=== PATIENT | female | born 1995 | race Two or more races ===

== ENCOUNTER 2018-02-12 18:14 | Emergency (ER) | payer OTHER ==
[2018-02-12] MEDS ORDERED: MAG HYDROX/AL HYDROX/SIMETH SUSP 30 ML UDCUP PO ONE (19:07)
[2018-02-12] MEDS ORDERED: LIDOCAINE 2% VISCOUS SOLN 20 ML UDCUP PO ONE (19:07)
--- NOTE | 2018-02-12 19:08 | ER Document Report ---
ED Medical Screen (RME) - General Chief Complaint: Abdominal Pain Stated Complaint: ABDOMINAL PAIN Time Seen by Provider: 02/12/18 19:01 Notes: 22-year-old female patient with onset yesterday right upper quadrant and epigastric abdominal pain. LMP 12/31/2017. Did a home test today and it was positive. I have greeted and performed a rapid initial assessment of this patient. A comprehensive ED assessment and evaluation of the patient, analysis of test results and completion of the medical decision making process will be conducted by additional ED providers. TRAVEL OUTSIDE OF THE [place] IN LAST 30 DAYS: No - Related Data Allergies/Adverse Reactions: No Known Allergies Allergy (Unverified 02/12/18 18:17) Past Medical History - Social History Chew tobacco use (# tins/day): No Frequency of alcohol use: None Drug Abuse: None Renal/ Medical History: Denies: Hx Peritoneal Dialysis Physical Exam - Vital signs Vitals: Temp Pulse Resp BP Pulse Ox 99.3 F 87 16 116/69 100 02/12/18 18:31 02/12/18 18:31 02/12/18 18:31 02/12/18 18:31 02/12/18 18:31 Course - Vital Signs Vital signs: Temp Pulse Resp BP Pulse Ox 99.3 F 87 16 116/69 100 02/12/18 18:31 02/12/18 18:31 02/12/18 18:31 02/12/18 18:31 02/12/18 18:31
[2018-02-12 19:45] LABS: ABSOLUTE BASOPHILS # (AUTO) 0.1 10^3/uL (0.0-0.2); ABSOLUTE EOSINOPHILS # (AUTO) 0.1 10^3/uL (0.0-0.6); ABSOLUTE LYMPHOCYTES (AUTO) 3.4 10^3/uL (0.5-4.7); ABSOLUTE MONOCYTES (AUTO) 0.5 10^3/uL (0.1-1.4); ABSOLUTE NEUT (AUTO) 6.3 10^3/uL (1.7-8.2); BASOPHILS % (AUTO) 0.9 % (0-2); EOSINOPHILS % (AUTO) 0.6 % (0-6); HEMATOCRIT 38.6 % (36.0-47.0); HEMOGLOBIN 13.1 g/dL (12.0-15.5); LYMPHOCYTES % (AUTO) 32.7 % (13-45); MEAN CORPUSCULAR HEMOGLOBIN 27.9 pg (27.0-33.4); MEAN CORPUSCULAR VOLUME 82 fl (80-97); RED CELL DISTRIBUTION WIDTH 14.7 % (11.5-14.0); SEGMENTED NEUTROPHILS % (AUTO) 60.8 % (42-78); TOTAL CELLS COUNTED % (AUTO) 100 %; WHITE BLOOD COUNT 10.4 10^3/uL (4.0-10.5)
[2018-02-12 20:06] LABS: PLATELET COUNT 205 10^3/uL (150-450)
[2018-02-12 20:07] LABS: ALANINE AMINOTRANSFERASE 27 U/L (9-52); ALBUMIN 4.4 g/dL (3.5-5.0); ALKALINE PHOSPHATASE 68 U/L (38-126); ANION GAP 13 (5-19); ASPARTATE AMINO TRANSFERASE 18 U/L (14-36); BILIRUBIN,DIRECT 0.2 mg/dL (0.0-0.4); BILIRUBIN,TOTAL 0.2 mg/dL (0.2-1.3); BLOOD UREA NITROGEN 18 mg/dL (7-20); CALCIUM 9.8 mg/dL (8.4-10.2); CARBON DIOXIDE 23 mmol/L (22-30); CHLORIDE 104 mmol/L (98-107); GLUCOSE 95 mg/dL (75-110); LIPASE 108.2 U/L (23-300); POTASSIUM 4.6 mmol/L (3.6-5.0); SODIUM 140.2 mmol/L (137-145); TOTAL PROTEIN 7.7 g/dL (6.3-8.2)
--- NOTE | 2018-02-12 20:15 | RADIOLOGY REPORT (SQ) ---
EXAM DESCRIPTION: U/S ABDOMEN LIMITED W/O DOP COMPLETED DATE/TIME: 02/12/2018 7:58 pm REASON FOR STUDY: RUQ and epigastric pain COMPARISON: None. TECHNIQUE: Dynamic and static grayscale images acquired of the abdomen and recorded on PACS. Additio nal selected color Doppler and spectral images recorded. LIMITATIONS: None. FINDINGS: PANCREAS: No masses. Visualized pancreatic duct normal caliber. LIVER: 17.2 cm. Normal echotexture. No masses. LIVER VASCULATURE: Normal directional flow of the main portal vein and hepatic veins. GALLBLADDER: Gallbladder is contracted. No stones. ULTRASOUND-DETECTED [place]'S SIGN: Negative. INTRAHEPATIC DUCTS AND COMMON DUCT: CBD and intrahepatic ducts normal caliber. No filling defects. INFERIOR VENA CAVA: Patent AORTA: No aneurysm. RIGHT KIDNEY: Normal size, 10 cm. Normal echogenicity. No solid or suspicious masses. No hydronephro sis. No calcifications. PERITONEAL AND RIGHT PLEURAL SPACE: No ascites or effusions. OTHER: No other significant findings. IMPRESSION: NORMAL RIGHT UPPER QUADRANT ULTRASOUND. TECHNICAL DOCUMENTATION: JOB ID: [id number]- All Rights Reserved Reading location - IP/workstation name: [email or web address]
--- NOTE | 2018-02-12 21:22 | ER Document Report ---
ED General - General Chief Complaint: Abdominal Pain Stated Complaint: ABDOMINAL PAIN Time Seen by Provider: 02/12/18 19:01 Notes: Patient is a 22-year-old female who presents with epigastric and right upper quadrant abdominal pain that has been present for the past several days to 1 week but became acutely worse today. She describes as a burning, stabbing pain to the upper abdomen. Worsened by eating. She reports that it has been improved by the GI cocktail that was administered prior to my assessment. Patient states that she recently discovered she was based on a home positive test. She denies any lower abdominal pain, dysuria, vaginal bleeding or vaginal discharge. She has not yet established care for this . She admits to regular consumption of spicy and acidic food. She has not seen her general doctor regarding today's concerns. TRAVEL OUTSIDE OF THE [place] IN LAST 30 DAYS: No - Related Data Allergies/Adverse Reactions: No Known Allergies Allergy (Unverified 02/12/18 18:17) Past Medical History - General Information source: Patient - Social History Smoking Status: Never Smoker Chew tobacco use (# tins/day): No Frequency of alcohol use: None Drug Abuse: None Lives with: Spouse/Significant other Family History: Reviewed & Not Pertinent Patient has suicidal ideation: No Patient has homicidal ideation: No Renal/ Medical History: Denies: Hx Peritoneal Dialysis Review of Systems - Review of Systems Notes: Constitutional: Negative for fever. HENT: Negative for sore throat. Eyes: Negative for visual changes. Cardiovascular: Negative for chest pain. Respiratory: Negative for shortness of breath. Gastrointestinal: Positive for abdominal pain and nausea Genitourinary: Negative for dysuria. Musculoskeletal: Negative for back pain. Skin: Negative for rash. Neurological: Negative for headaches, weakness or numbness. 10 point ROS negative except as marked above and in HPI. Physical Exam - Vital signs Vitals: Temp Pulse Resp BP Pulse Ox 99.3 F 87 16 116/69 100 02/12/18 18:31 02/12/18 18:31 02/12/18 18:31 02/12/18 18:31 02/12/18 18:31 Interpretation: Normal Notes: PHYSICAL EXAMINATION: GENERAL: Well-appearing, well-nourished and in no acute distress. HEAD: Atraumatic, normocephalic. EYES: Pupils equal round and reactive to light, extraocular movements intact, sclera anicteric, conjunctiva are normal. ENT: nares patent, oropharynx clear without exudates. Moist mucous membranes. NECK: Normal range of motion, supple without lymphadenopathy LUNGS: Breath sounds clear to auscultation bilaterally and equal. No wheezes rales or rhonchi. HEART: Regular rate and rhythm without murmurs ABDOMEN: Soft, nontender, normoactive bowel sounds. No guarding, no rebound. No masses appreciated. EXTREMITIES: Normal range of motion, no pitting or edema. No cyanosis. NEUROLOGICAL: No focal neurological deficits. Moves all extremities spontaneously and on command. PSYCH: Normal mood, normal affect. SKIN: Warm, Dry, normal turgor, no rashes or lesions noted. Course - Re-evaluation Re-evalutation: 02/12/18 21:21 Patient presents with epigastric abdominal pain with associated reflux symptoms most consistent with likely gastritis. Patient has no focal abdominal tenderness on examination. Right upper quadrant ultrasound does not demonstrate any evidence of acute cholecystitis or cholelithiasis. Lipase is normal. No LFT changes. Based on history and exam, I do not suspect ACS, pulmonary embolus, SBO, mesenteric ischemia, acute pancreatitis, biliary pathology, related pathology, or an abdominal aortic dissection. Patient has had improvement of symptoms here with a GI cocktail. At this time will discharge with return precautions and follow-up recommendations. Verbal discharge instructions given a the bedside and opportunity for questions given. Medication warnings reviewed. Patient is in agreement with this plan and has verbalized understanding of return precautions and the need for primary care follow-up in the next 24-72 hours. - Vital Signs Vital signs: Temp Pulse Resp BP Pulse Ox 98.0 F 78 18 107/54 L 99 02/12/18 22:18 02/12/18 22:18 02/12/18 22:18 02/12/18 22:18 02/12/18 22:18 - Laboratory Result Diagrams: 02/12/18 19:26 02/12/18 19:26 Laboratory results interpreted by me: 02/12/18 02/12/18 19:26 19:26 RDW 14.7 H Beta HCG, Quant 421.79 H - Diagnostic Test Radiology reviewed: Reports reviewed Discharge - Discharge Clinical Impression: Upper abdominal pain, First trimester Gastritis Qualifiers: Gastritis type: unspecified gastritis Chronicity: acute Gastritis bleeding: without bleeding Qualified Code(s): K29.00 - Acute gastritis without bleeding Condition: Good Disposition: HOME, SELF-CARE Additional Instructions: Your symptoms appear to be most consistent with stomach or upper intestinal irritation. Please begin taking famotidine 40 mg in the morning and 40 mg at night. This medicine can be purchased directly [id number]. You may also take medicine such as Tums to assist with your pain. Please return to emergency department immediately if you have worsening of your pain, shortness of breath, vomiting, become unable to exert yourself due to pain or difficulty breathing, you pass out, or have any pain that radiates into your arms, jaw, or back. Please also return if you have any additional symptoms that are concerning to you. As we have discussed, the most important thing is lifestyle changes. You need to avoid smoking, sodas, tea, coffee, alcohol, spicy foods, and acidic foods such as citrus fruits, tomato based products, berries, and most fruit juices. Referrals: JUSTINA WALLS, DO [Primary Care Provider] - Follow up as needed
[2018-02-12 22:21] VITALS: BP 107/54
== END 2018-02-12 22:21 | disposition home or self-care (01) ==
LOC: ER 18:14
DX: O99.611 Diseases of the digestive system complicating pregnancy, first trimester (principal); K29.00 Acute gastritis without bleeding; O26.891 Other specified pregnancy related conditions, first trimester; R10.13 Epigastric pain; R10.11 Right upper quadrant pain; R11.0 Nausea; Z3A.00 Weeks of gestation of pregnancy not specified
CPT/HCPCS: 99284; 36415; 84702; 83690; 85025; 80053; 76705; J3490

== ENCOUNTER 2018-02-17 15:30 | Emergency (ER) | payer OTHER ==
[2018-02-17 16:48] LABS: APPEARANCE,URINE CLEAR; BILIRUBIN,URINE NEGATIVE (NEGATIVE); COLOR,URINE YELLOW; GLUCOSE, URINE NEGATIVE (NEGATIVE); KETONES,URINE NEGATIVE (NEGATIVE); LEUKOCYTE ESTERASE,URINE NEGATIVE (NEGATIVE); NITRITE,URINE NEGATIVE (NEGATIVE); PROTEIN,URINE NEGATIVE (NEGATIVE); URINE SPECIFIC GRAVITY 1.006; UROBILINOGEN,URINE NEGATIVE mg/dL (<2.0)
--- NOTE | 2018-02-17 16:59 | ER Document Report ---
ED GI/ - General Chief Complaint: OB Problem (<20wks) Stated Complaint: BACK/STOMACH PAIN Time Seen by Provider: 02/17/18 16:05 Mode of Arrival: Ambulatory Information source: Patient Notes: 22-year-old female who presents to the emergency department today with complaints of vaginal bleeding. Patient is her last menstrual period was December 31. Patient has tested positive for chlamydia in the past. Patient also complains of mild back pain. Patient states she is vaginal discharge that is somewhat normal for her. I have greeted and performed a rapid initial assessment of this patient. A comprehensive ED assessment and evaluation of the patient, analysis of test results, and completion of the medical decision making process will be conducted by additional ED providers. Review of systems: Constitutional: No symptoms reported EENT: No symptoms reported Cardiovascular: No symptoms reported Respiratory: No symptoms reported Gastrointestinal: No symptoms reported Genitourinary: No symptoms reported Musculoskeletal: No symptoms reported Skin: No symptoms reported Hematologic/Lymphatic: No symptoms reported Neurological/Psychological: No symptoms reported Yes All other systems reviewed and negative Physical Exam: General: Alert, appears well. HEENT: Normocephalic. Atraumatic. PERRLA. Extraocular movements intact. Oropharynx clear. Neck: Supple. Respiratory: No respiratory distress. Abdominal: Normal Inspection. No distension. Extremities: Moves all four extremities. Neurological: Normal cognition. AAOx4. Normal speech. Psychological: Normal affect. Normal Mood. Skin: Warm. Dry. Normal color. TRAVEL OUTSIDE OF THE [place] IN LAST 30 DAYS: No - Related Data Allergies/Adverse Reactions: No Known Allergies Allergy (Verified 02/17/18 16:01) Past Medical History - General Information source: Patient Last Menstrual Period: 12/31/2017 - Social History Smoking Status: Never Smoker Cigarette use (# per day): No Chew tobacco use (# tins/day): No Frequency of alcohol use: None Drug Abuse: None Family History: Reviewed & Not Pertinent Patient has suicidal ideation: No Patient has homicidal ideation: No - Medical History Medical History: Negative Renal/ Medical History: Denies: Hx Peritoneal Dialysis Surgical Hx: Negative Review of Systems - Review of Systems Constitutional: No symptoms reported EENT: No symptoms reported Cardiovascular: No symptoms reported Respiratory: No symptoms reported Gastrointestinal: No symptoms reported Genitourinary: No symptoms reported Female Genitourinary: See HPI, Vaginal discharge Musculoskeletal: See HPI, Back pain Skin: No symptoms reported Hematologic/Lymphatic: No symptoms reported Neurological/Psychological: No symptoms reported -: Yes All other systems reviewed and negative Physical Exam - Vital signs Vitals: Temp Pulse Resp BP Pulse Ox 98.0 F 83 20 121/72 97 02/17/18 15:51 02/17/18 15:51 02/17/18 15:51 02/17/18 15:51 02/17/18 15:51 - Notes Notes: Physical Exam: General: Alert, appears well. HEENT: Normocephalic. Atraumatic. PERRL. Extraocular movements intact. Oropharynx clear. Neck: Supple. Non-tender. Respiratory: No respiratory distress. Clear and equal breath sounds bilaterally. Cardiovascular: Regular rate and rhythm. Abdominal: Normal Inspection. Non-tender. No distension. Normal Bowel Sounds. Back: Non-tender. No deformity or step off. Extremities: Moves all four extremities. Upper extremities: Normal inspection. Normal ROM. Lower extremities: Normal inspection. No edema. Normal ROM. Neurological: Normal cognition. AAOx4. Normal speech. Psychological: Normal affect. Normal Mood. Skin: Warm. Dry. Normal color. Course - Vital Signs Vital signs: Temp Pulse Resp BP Pulse Ox 98.0 F 83 20 121/72 97 02/17/18 15:51 02/17/18 15:51 02/17/18 15:51 02/17/18 15:51 02/17/18 15:51 - Laboratory Laboratory results interpreted by dc: 02/17/18 02/17/18 16:15 16:20 Beta HCG, Quant 86.08 H Urine Blood LARGE H
[2018-02-17] MEDS ORDERED: LIDOCAINE 2% VISCOUS SOLN 20 ML UDCUP PO ONE (17:07)
[2018-02-17] MEDS ORDERED: MAG HYDROX/AL HYDROX/SIMETH SUSP 30 ML UDCUP PO ONE (17:07)
--- NOTE | 2018-02-17 17:10 | RADIOLOGY REPORT (SQ) ---
EXAM DESCRIPTION: U/S OB TRANSVAGINAL W/O DOP COMPLETED DATE/TIME: 02/17/2018 4:59 pm REASON FOR STUDY: vag bleed, r/o ectopic COMPARISON: None. TECHNIQUE: Transvaginal grayscale images acquired of the pelvis. Additional selected spectral and co ruben Doppler images recorded. All images stored on PACs. BHCG: Pending. LIMITATIONS: None. FINDINGS: UTERUS: The uterus measures 8.4 x 4.8 x 6.0 cm. The endometrium measurements 1.3 cm in do uble wall thickness. No visualized intrauterine . The cervix measures 3.0 cm in length. RIGHT ADNEXA: The right ovary measures 3.1 x 1.9 x 1.5 cm. Flow by Doppler was shown to the right ov elizabeth. No adnexal masses the were visualized. LEFT ADNEXA: The left ovary measures 3.1 x 2.3 x 1.5 cm. Flow by Doppler was shown to the left ovary . No adnexal masses were visualized. FREE FLUID: Small amount of free fluid at the cul-de-sac. IMPRESSION: NO VISUALIZED INTRA- OR EXTRAUTERINE . ECTOPIC CANNOT BE EXCLUDED. FOLLOW-UP ULTRASOUND AND SERIAL BHCG LEVELS STRONGLY RECOMMENDED TO ACCURATELY ASSESS STATU S. TECHNICAL DOCUMENTATION: JOB ID: [id number] 2010 [employer]- All Rights Reserved Reading location - IP/workstation name: [email or web address]
--- NOTE | 2018-02-17 17:13 | ER Document Report ---
ED General - General Mode of Arrival: Ambulatory Information source: Patient TRAVEL OUTSIDE OF THE [place] IN LAST 30 DAYS: No - General Chief Complaint: OB Problem (<20wks) Stated Complaint: BACK/STOMACH PAIN Time Seen by Provider: 02/17/18 16:05 Notes: Patient is a 22 year old female presenting to the emergency department complaining of epigastric abdominal pain and vaginal bleeding while . Patient states she began to abdominal cramps last night which started in the right lower quadrant and migrated to the epigastric area. Today she states she felt a "gush" and went to the bathroom and noticed some blood around 14:30. On February 12, patient presented to the emergency department complaining of epigastric and right upper quadrant pain. She was discharged with a diagnosis of <20 weeks, GERD, and gastritis. Patient was prescribed Famotidine. Patients LMP was December 31, 2017. (JOSE STOVALL) - Related Data Allergies/Adverse Reactions: No Known Allergies Allergy (Verified 02/17/18 16:01) Past Medical History - General Information source: Patient Last Menstrual Period: 12/31/2017 - Social History Smoking Status: Never Smoker Chew tobacco use (# tins/day): No Frequency of alcohol use: None Drug Abuse: None Family History: Reviewed & Not Pertinent Patient has suicidal ideation: No Patient has homicidal ideation: No Review of Systems - Review of Systems Constitutional: No symptoms reported EENT: No symptoms reported Cardiovascular: No symptoms reported Respiratory: No symptoms reported Gastrointestinal: See HPI, Abdominal pain Genitourinary: No symptoms reported Female Genitourinary: See HPI, , Vaginal bleeding Musculoskeletal: No symptoms reported Skin: No symptoms reported Hematologic/Lymphatic: No symptoms reported Neurological/Psychological: No symptoms reported -: Yes All other systems reviewed and negative Physical Exam - General General appearance: Appears well, Alert In distress: None - HEENT Head: Normocephalic, Atraumatic Eyes: Normal Conjunctiva: Normal Extraocular movements intact: Yes Pupils: PERRL Neck: Normal - Respiratory Respiratory status: No respiratory distress Chest status: Nontender Breath sounds: Normal Chest palpation: Normal - Cardiovascular Rhythm: Regular Heart sounds: Normal auscultation Murmur: No Friction rub: No Gallop: None auscultated - Abdominal Inspection: Normal Distension: No distension Bowel sounds: Normal Tenderness: Tender - Epigastric tenderness to palpation Organomegaly: No organomegaly - Back Back: Normal - Extremities General upper extremity: Normal ROM General lower extremity: Normal ROM - Neurological Neuro grossly intact: Yes Cognition: Normal Orientation: AAOx4 [place] Coma Scale Eye Opening: Spontaneous [place] Coma Scale Verbal: Oriented [place] Coma Scale Motor: Obeys Commands [place] Coma Scale Total: 15 Speech: Normal - Psychological Associated symptoms: Normal affect, Normal mood - Skin Skin Temperature: Warm Skin Moisture: Dry Skin Color: Normal - Vital signs Vitals: Temp Pulse Resp BP Pulse Ox 98.0 F 83 20 121/72 97 02/17/18 15:51 02/17/18 15:51 02/17/18 15:51 02/17/18 15:51 02/17/18 15:51 - Vital Signs Vital signs: Temp Pulse Resp BP Pulse Ox 98.7 F 77 20 126/77 H 100 02/17/18 18:57 02/17/18 18:57 02/17/18 15:51 02/17/18 18:57 02/17/18 18:57 - Laboratory Laboratory results interpreted by me: 02/17/18 02/17/18 16:15 16:20 Beta HCG, Quant 86.08 H Urine Blood LARGE H Discharge - Discharge Clinical Impression: Miscarriage Gastroesophageal reflux disease Qualifiers: Esophagitis presence: esophagitis presence not specified Qualified Code(s): K21.9 - Gastro-esophageal reflux disease without esophagitis Condition: Stable Disposition: HOME, SELF-CARE Additional Instructions: Miscarriage You have had a miscarriage (medically called a "spontaneous "). The miscarriage occurred because the fetus did not develop normally. There is nothing you did to cause it, and nothing you could have done to prevent it. About one in four ends in miscarriage. You should rest in bed for two or three days. As there is some risk of infection of the uterus, you should not have intercourse for one week (or until okayed by your physician). You might not have a period for six to eight weeks. You should not become again for at least three months -- the uterus requires time to get back to normal. Call the doctor or return for re-examination if there is heavy or persistent vaginal bleeding, fever, foul discharge, continued cramping pains, or abdominal pain. Reflux Disease (GERD): Gastro-Esophageal Reflux Disease (GERD) is caused by stomach acid refluxing back up into the esophagus. The valve at the end of the esophagus may be weak. This is common in persons with a hiatal hernia. GERD symptoms can include indigestion, chest pain, heartburn, or food "sticking." Certain foods, alcohol, and aspirin can make GERD worse. Treatment depends on the severity. Usually, antacids or acid-suppressing medicines are used. When the esophagus is acutely inflamed, the physician will often prescribe membrane-protective drugs such as Carafate. Some patients benefit from medication such as Reglan that tightens the valve at the top of the stomach. Avoid those foods that bring on your symptoms. For many people, these foods are coffee, chocolate, onions, garlic, and carbonated drinks. Don't use alcohol, aspirin, caffeine, or tobacco. Don't eat late at night -- within 4 hours of bedtime. Don't over-eat. If necessary, elevate the head of your bed about 4 inches so that stomach acid will not roll up into your esophagus. Call the doctor if you develop severe chest pain, inability to swallow fluids, fever, or worsening symptoms. Call [facility] Monday to schedule an appointment for this week for recheck. Take Prilosec OTC or other acid suppressing medication for the next 1-2 weeks. Take antacids between meals and at bedtime and as needed for heartburn type symptoms. Eat a bland diet. RETURN TO THE EMERGENCY ROOM IF ANY NEW OR WORSENING SYMPTOMS. Alejandraibe Attestation: 02/17/18 18:57 I personally performed the services described in the documentation, reviewed and edited the documentation which was dictated to the scribe in my presence, and it accurately records my words and actions. (DOMONIQUE JACKSON) Alejandraibe Documentation - Scribe Written by Swati:: Swati Hooper, 02/17/2018 17:15 acting as scribe for :: Caio
[2018-02-17 18:57] VITALS: BP 126/77
== END 2018-02-17 19:03 | disposition home or self-care (01) ==
LOC: ER 15:30
DX: O03.9 Complete or unspecified spontaneous abortion without complication (principal); K21.9 Gastro-esophageal reflux disease without esophagitis
CPT/HCPCS: 99284; 86900; 86901; 36415; 84702; 81001; 76817; J3490

== ENCOUNTER 2018-07-12 20:34 | Emergency (ER) | payer OTHER ==
[2018-07-12] MEDS ORDERED: HYOSCYAMINE SULFATE 0.125 MG TABLET PO ONE (20:53)
[2018-07-12] MEDS ORDERED: ONDANSETRON 4 MG TAB.RAPDIS PO ONE (20:53)
[2018-07-12 21:33] LABS: ABSOLUTE LYMPHOCYTES (AUTO) 2.3 10^3/uL (0.5-4.7); ABSOLUTE MONOCYTES (AUTO) 0.4 10^3/uL (0.1-1.4); ABSOLUTE NEUT (AUTO) 3.8 10^3/uL (1.7-8.2); BASOPHILS % (AUTO) 0.5 % (0-2); EOSINOPHILS % (AUTO) 0.4 % (0-6); HEMATOCRIT 37.1 % (36.0-47.0); HEMOGLOBIN 12.6 g/dL (12.0-15.5); LYMPHOCYTES % (AUTO) 35.4 % (13-45); MEAN CORPUSCULAR HEMOGLOBIN 28.6 pg (27.0-33.4); MEAN CORPUSCULAR HGB CONC 34.1 g/dL (32.0-36.0); MEAN CORPUSCULAR VOLUME 84 fl (80-97); MONOCYTES % (AUTO) 5.8 % (3-13); PLATELET COUNT 239 10^3/uL (150-450); RED BLOOD COUNT 4.42 10^6/uL (3.72-5.28); RED CELL DISTRIBUTION WIDTH 13.7 % (11.5-14.0); SEGMENTED NEUTROPHILS % (AUTO) 57.9 % (42-78); TOTAL CELLS COUNTED % (AUTO) 100 %; WHITE BLOOD COUNT 6.6 10^3/uL (4.0-10.5)
[2018-07-12] MEDS ORDERED: HYOSCYAMINE SULFATE 0.125 MG TABLET ONE (21:36)
[2018-07-12 21:47] LABS: APPEARANCE,URINE CLEAR; BILIRUBIN,URINE NEGATIVE (NEGATIVE); COLOR,URINE STRAW; GLUCOSE, URINE NEGATIVE (NEGATIVE); KETONES,URINE NEGATIVE (NEGATIVE); LEUKOCYTE ESTERASE,URINE NEGATIVE (NEGATIVE); NITRITE,URINE NEGATIVE (NEGATIVE); PROTEIN,URINE NEGATIVE (NEGATIVE); URINE SPECIFIC GRAVITY 1.011; UROBILINOGEN,URINE NEGATIVE mg/dL (<2.0)
[2018-07-12 22:02] LABS: ALANINE AMINOTRANSFERASE 15 U/L (9-52); ALBUMIN 4.8 g/dL (3.5-5.0); ALKALINE PHOSPHATASE 64 U/L (38-126); ANION GAP 16 (5-19); ASPARTATE AMINO TRANSFERASE 17 U/L (14-36); BILIRUBIN,DIRECT 0.1 mg/dL (0.0-0.4); BILIRUBIN,TOTAL 0.3 mg/dL (0.2-1.3); BLOOD UREA NITROGEN 17 mg/dL (7-20); CALCIUM 9.9 mg/dL (8.4-10.2); CARBON DIOXIDE 25 mmol/L (22-30); CHLORIDE 100 mmol/L (98-107); GLUCOSE 72 mg/dL (75-110); POTASSIUM 4.1 mmol/L (3.6-5.0); SODIUM 140.7 mmol/L (137-145); TOTAL PROTEIN 8.1 g/dL (6.3-8.2)
--- NOTE | 2018-07-12 22:10 | RADIOLOGY REPORT (SQ) ---
EXAM DESCRIPTION: US TRANSVAGINAL COMPLETED DATE/TME: 07/12/2018 20:54 CLINICAL HISTORY: 23 years, Female, lower ab pain, preg COMPARISON: None. TECHNIQUE: LIMITATIONS: None. FINDINGS: There is an intrauterine gestational sac, with a mean diameter of 2.4 mm, compatible with 4-5 weeks gestational age. There is no evidence of an embryo or yolk sac at this time. No evidence of subchorionic hemorrhage. The endometrial stripe is thickened, measuring 16 mm. The ovaries are unremarkable. No free fluid. IMPRESSION: 4-5 week intrauterine gestational sac. 2010 [employer]- All Rights Reserved
--- NOTE | 2018-07-12 22:28 | ER Document Report ---
ED General - General Chief Complaint: Abdominal Pain Stated Complaint: ABDOMINAL PAIN/CRAMPING Time Seen by Provider: 07/12/18 20:51 Notes: Patient is a 23-year-old female at approximately 4 weeks gestation who presents with concerns of approximately 1 week to 10 days of lower abdominal cramping and low back pain. She states that nothing is new or different about her pain tonight that prompted a visit to the emergency department. She states that her primary concern is that she is concerned about possibly having another miscarriage. She has not had any vaginal bleeding or vaginal discharge. She describes the pain as being diffusely in her lower abdomen and low back and is a cramping, aching, intermittent pain. Nothing seems to improve or worsen the pain. Denies a history of similar symptoms with her previous pregnancies. She has not yet established care for this . She denies fever or constitutional symptoms. No vomiting. TRAVEL OUTSIDE OF THE [place] IN LAST 30 DAYS: No - Related Data Allergies/Adverse Reactions: No Known Allergies Allergy (Verified 02/17/18 16:01) Past Medical History - General Information source: Patient - Social History Smoking Status: Never Smoker Frequency of alcohol use: None Drug Abuse: None Lives with: Spouse/Significant other Family History: Reviewed & Not Pertinent Patient has suicidal ideation: No Patient has homicidal ideation: No Renal/ Medical History: Denies: Hx Peritoneal Dialysis Review of Systems - Review of Systems Notes: Constitutional: Negative for fever. HENT: Negative for sore throat. Eyes: Negative for visual changes. Cardiovascular: Negative for chest pain. Respiratory: Negative for shortness of breath. Gastrointestinal: Positive for lower abdominal pain Genitourinary: Negative for dysuria. Musculoskeletal: Positive for low back pain Skin: Negative for rash. Neurological: Negative for headaches, weakness or numbness. 10 point ROS negative except as marked above and in HPI. Physical Exam - Vital signs Vitals: Temp Pulse Resp BP Pulse Ox 98.1 F 82 18 110/75 99 07/12/18 20:38 07/12/18 20:38 07/12/18 20:38 07/12/18 20:38 07/12/18 20:38 Interpretation: Normal Notes: PHYSICAL EXAMINATION: GENERAL: Well-appearing, well-nourished and in no acute distress. HEAD: Atraumatic, normocephalic. EYES: Pupils equal round and reactive to light, extraocular movements intact, sclera anicteric, conjunctiva are normal. ENT: nares patent, oropharynx clear without exudates. Moist mucous membranes. NECK: Normal range of motion, supple without lymphadenopathy LUNGS: Breath sounds clear to auscultation bilaterally and equal. No wheezes rales or rhonchi. HEART: Regular rate and rhythm without murmurs ABDOMEN: Soft, nontender, normoactive bowel sounds. No guarding, no rebound. No masses appreciated. EXTREMITIES: Normal range of motion, no pitting or edema. No cyanosis. NEUROLOGICAL: No focal neurological deficits. Moves all extremities spontaneously and on command. PSYCH: Normal mood, normal affect. SKIN: Warm, Dry, normal turgor, no rashes or lesions noted. Course - Re-evaluation Re-evalutation: 07/12/18 23:10 Patient is currently and presenting with lower abdominal pain. No vaginal bleeding or discharge. Formal ultrasound does show intrauterine gestational sac. Patient denies any dysuria and urinalysis is not consistent with an acute urinary tract infection. The patient does not have any focal right lower quadrant tenderness, rebound or guarding to suggest acute appendicitis. No right upper quadrant tenderness to suggest cholestasis of or an acute cholecystitis. Patient has tolerated oral intake here in the emergency department without difficulty. Vitals are within normal limits. At this time will discharge with return precautions and follow-up recommendations. Verbal discharge instructions given a the bedside and opportunity for questions given. Medication warnings reviewed. Patient is in agreement with this plan and has verbalized understanding of return precautions and the need for primary care follow-up in the next 24-72 hours. - Vital Signs Vital signs: Temp Pulse Resp BP Pulse Ox 98.1 F 82 20 108/72 99 07/12/18 20:38 07/12/18 20:38 07/12/18 22:58 07/12/18 22:58 07/12/18 22:58 - Laboratory Result Diagrams: 07/12/18 20:53 07/12/18 20:53 Laboratory results interpreted by me: 07/12/18 07/12/18 07/12/18 20:53 20:53 20:53 Glucose 72 L Serum HCG, Qual POSITIVE H Beta HCG, Quant 2317.70 H Urine Blood 07/12/18 21:17 Glucose Serum HCG, Qual Beta HCG, Quant Urine Blood SMALL H Discharge - Discharge Clinical Impression: Abdominal cramping affecting , First trimester Condition: Good Disposition: HOME, SELF-CARE Additional Instructions: Your ultrasound shows a very early in the uterus. Your other labs are otherwise normal. A urine culture has been sent but your initial urine study is normal. Please return if you develop severe abdominal pain, bleeding that goes through more than 2 pads for more than 2 hours, pass out, or have any other symptoms that are concerning to you. Please follow-up closely with your OBGYN regarding todays visit.
[2018-07-12 23:19] VITALS: BP 108/72
== END 2018-07-12 22:58 | disposition home or self-care (01) ==
LOC: ER 20:34
DX: O26.891 Other specified pregnancy related conditions, first trimester (principal); R10.30 Lower abdominal pain, unspecified; O99.89 Other specified diseases and conditions complicating pregnancy, childbirth and the puerperium; M54.5 Low back pain; Z3A.00 Weeks of gestation of pregnancy not specified
CPT/HCPCS: 99284; 36415; 84702; 84703; 85025; 80053; 81001; 76817; S0119

== ENCOUNTER 2018-07-24 22:17 | Emergency (ER) | payer OTHER ==
[2018-07-25] MEDS ORDERED: METOCLOPRAMIDE HCL 10 MG TABLET PO ONE (00:01)
--- NOTE | 2018-07-25 00:04 | ER Document Report ---
ED GI/ - General Chief Complaint: OB Problem (<20wks) Stated Complaint: ABDOMINAL PAIN, PELVIC PAIN Time Seen by Provider: 07/24/18 23:53 Notes: Patient is a 23-year-old female that comes to the emergency department for chief complaint of lower abdominal pain and urinary frequency that started earlier today. She states she has been having morning sickness but this is not changed with today. Denies fever or chills, flank pain, abdominal cramping, vaginal bleeding or discharge. She is approximately 6 weeks , . was confirmed in the uterus by ultrasound within the past 2 weeks. Patient states that despite nausea episodes and occasional vomiting she has been eating and drinking normally. TRAVEL OUTSIDE OF THE [place] IN LAST 30 DAYS: No - Related Data Allergies/Adverse Reactions: No Known Allergies Allergy (Verified 02/17/18 16:01) Past Medical History - General Information source: Patient - Social History Smoking Status: Never Smoker Frequency of alcohol use: None Drug Abuse: None Lives with: Family Family History: Reviewed & Not Pertinent - Medical History Medical History: Negative Renal/ Medical History: Denies: Hx Peritoneal Dialysis Surgical Hx: Negative - Immunizations Immunizations up to date: Yes Hx Diphtheria, Pertussis, Tetanus Vaccination: Yes Review of Systems - Review of Systems Constitutional: No symptoms reported EENT: No symptoms reported Cardiovascular: No symptoms reported Respiratory: No symptoms reported Gastrointestinal: See HPI Genitourinary: See HPI Female Genitourinary: See HPI Musculoskeletal: No symptoms reported Skin: No symptoms reported Hematologic/Lymphatic: No symptoms reported Neurological/Psychological: No symptoms reported Physical Exam - Vital signs Vitals: Temp Pulse Resp BP Pulse Ox 97.9 F 109 H 14 109/67 100 07/24/18 22:54 07/24/18 22:54 07/24/18 22:54 07/24/18 22:54 07/24/18 22:54 - Notes Notes: GENERAL: Alert, interacts well. No acute distress. HEAD: Normocephalic, atraumatic. EYES: Pupils equal, round, and reactive to light. Extraocular movements intact. ENT: Oral mucosa moist, tongue midline. Oropharynx unremarkable. Airway patent. Nares patent, no nasal septal hematoma, TM's intact. NECK: Full range of motion. Supple. Trachea midline. LUNGS: Clear to auscultation bilaterally, no wheezes, rales, or rhonchi. No respiratory distress. HEART: Regular rate and rhythm. No murmur ABDOMEN: Soft, non-tender except for mild suprapubic tenderness. Remaining abdomen is benign. Bowel sounds present. GENITOURINARY: Deferred EXTREMITIES: Moves all 4 extremities spontaneously. No edema, normal radial and dorsalis pedis pulses bilaterally. No cyanosis. BACK: no cervical, thoracic, lumbar midline tenderness. No saddle anesthesia, normal distal neurovascular exam. NEUROLOGICAL: Alert and oriented x3. Normal speech. [cranial nerves II through XII grossly intact]. PSYCH: Normal affect, normal mood. SKIN: Warm, dry, normal turgor. No rashes or lesions noted. Course - Re-evaluation Re-evalutation: Patient is smiling and well-appearing on my exam. Mildly tachycardic on initial vital signs. She is not tachycardic on my exam. No fever. Minimal suprapubic tenderness on exam. Urinary frequency. She has already had a confirmed in the uterus by ultrasound within the past 2 weeks. No vaginal bleeding or discharge. Urinalysis does not show infection. I discussed with patient. Culture was placed. Offered pelvic examination and pelvic ultrasound to evaluate the source of her pain further. Patient declined. She states she wants nothing invasive. Instead CBC, chemistry were obtained, patient was given nausea medicine, IV fluids. On reevaluation she denies any abdominal pain. She remains very well-appearing. Very low suspicion of acute abdomen. Discussed with patient. Patient will be provided with nausea medication, she will follow- up with her primary, she will return if she develops any concerning or worsening symptoms. Patient and family state satisfaction and agreement with plan. - Vital Signs Vital signs: Temp Pulse Resp BP Pulse Ox 97.9 F 109 H 14 109/67 100 07/24/18 22:54 07/24/18 22:54 07/24/18 22:54 07/24/18 22:54 07/24/18 22:54 - Laboratory Result Diagrams: 07/25/18 01:04 07/25/18 01:04 Laboratory results interpreted by me: 07/25/18 00:05 Urine Blood SMALL H Discharge - Discharge Clinical Impression: Urinary frequency Abdominal pain Qualifiers: Abdominal location: generalized Qualified Code(s): R10.84 - Generalized abdominal pain Condition: Stable Disposition: HOME, SELF-CARE Additional Instructions: Your laboratory workup does not show any concerning abnormalities at this time. You have been hydrated, take Reglan if needed for nausea, follow-up with [facility] for additional evaluation and management. Return if you worsen including severe worsening pain, fever of 100.4 or greater , persistent vomiting, vaginal bleeding, or any other concerning or worsening symptoms. Prescriptions: Metoclopramide HCl [Reglan] 5 mg PO ASDIR PRN #30 tablet PRN Reason:
[2018-07-25 00:25] LABS: APPEARANCE,URINE CLEAR; BILIRUBIN,URINE NEGATIVE (NEGATIVE); COLOR,URINE STRAW; GLUCOSE, URINE NEGATIVE (NEGATIVE); KETONES,URINE NEGATIVE (NEGATIVE); LEUKOCYTE ESTERASE,URINE NEGATIVE (NEGATIVE); NITRITE,URINE NEGATIVE (NEGATIVE); PROTEIN,URINE NEGATIVE (NEGATIVE); URINE SPECIFIC GRAVITY 1.005; UROBILINOGEN,URINE NEGATIVE mg/dL (<2.0)
[2018-07-25] MEDS ORDERED: NORMAL SALINE 1000 ML 1,000 ML IV ONE (00:34)
[2018-07-25 01:13] LABS: ABSOLUTE EOSINOPHILS # (AUTO) 0.1 10^3/uL (0.0-0.6); ABSOLUTE LYMPHOCYTES (AUTO) 2.5 10^3/uL (0.5-4.7); ABSOLUTE MONOCYTES (AUTO) 0.4 10^3/uL (0.1-1.4); ABSOLUTE NEUT (AUTO) 4.2 10^3/uL (1.7-8.2); BASOPHILS % (AUTO) 0.5 % (0-2); EOSINOPHILS % (AUTO) 0.7 % (0-6); HEMOGLOBIN 12.5 g/dL (12.0-15.5); LYMPHOCYTES % (AUTO) 34.3 % (13-45); MEAN CORPUSCULAR HEMOGLOBIN 28.4 pg (27.0-33.4); MEAN CORPUSCULAR HGB CONC 33.8 g/dL (32.0-36.0); MEAN CORPUSCULAR VOLUME 84 fl (80-97); MONOCYTES % (AUTO) 5.4 % (3-13); PLATELET COUNT 224 10^3/uL (150-450); RED CELL DISTRIBUTION WIDTH 13.9 % (11.5-14.0); SEGMENTED NEUTROPHILS % (AUTO) 59.1 % (42-78); TOTAL CELLS COUNTED % (AUTO) 100 %; WHITE BLOOD COUNT 7.2 10^3/uL (4.0-10.5)
[2018-07-25 01:27] LABS: ANION GAP 13 (5-19); BLOOD UREA NITROGEN 11 mg/dL (7-20); CALCIUM 9.5 mg/dL (8.4-10.2); CARBON DIOXIDE 25 mmol/L (22-30); CHLORIDE 102 mmol/L (98-107); GLUCOSE 85 mg/dL (75-110); POTASSIUM 4.2 mmol/L (3.6-5.0); SODIUM 140.2 mmol/L (137-145)
[2018-07-25 01:54] VITALS: BP 104/53
== END 2018-07-25 01:54 | disposition home or self-care (01) ==
LOC: ER 22:17
DX: O26.899 Other specified pregnancy related conditions, unspecified trimester (principal); R10.84 Generalized abdominal pain; R35.0 Frequency of micturition; O21.9 Vomiting of pregnancy, unspecified; Z3A.00 Weeks of gestation of pregnancy not specified
CPT/HCPCS: 99284; 96360; 36415; 87086; 85025; 80048; 81001; J7030

== ENCOUNTER 2018-07-29 02:36 | Emergency (ER) | payer OTHER ==
--- NOTE | 2018-07-29 03:01 | ER Document Report ---
ED GI/ - General Chief Complaint: OB Problem (<20wks) Stated Complaint: VAGINAL BLEEDING, 7WKS Time Seen by Provider: 07/29/18 02:50 Mode of Arrival: Ambulatory Information source: Patient TRAVEL OUTSIDE OF THE [place] IN LAST 30 DAYS: No - HPI Patient complains to provider of: Vaginal bleeding Onset: Just prior to arrival Timing/Duration: Sudden Quality of pain: Cramping Severity at maximum: Mild Severity in ED: Mild Location: Pelvis Vaginal bleeding (Compared to normal period): Spotting Menstrual period history: Associated symptoms: None Exacerbated by: Denies Relieved by: Denies Similar symptoms previously: Yes Recently seen / treated by doctor: Yes Notes: 07/29/18 03:00 Patient is a 23-year-old female who reports being approximately 7 weeks , presenting to the emergency department today complaining of vaginal bleeding that she noted when she used the restroom just prior to arrival, she does report some mild pelvic cramping as well as nausea, she has not yet been seen by [facility], this is her third , first was without complications and she has a living child from, second resulted in a miscarriage and she is now concerned of the possibility of a miscarriage today - Related Data Allergies/Adverse Reactions: No Known Allergies Allergy (Verified 07/29/18 03:17) Past Medical History - General Information source: Patient - Social History Smoking Status: Unknown if Ever Smoked Family History: Reviewed & Not Pertinent Renal/ Medical History: Denies: Hx Peritoneal Dialysis - Immunizations Immunizations up to date: Yes Hx Diphtheria, Pertussis, Tetanus Vaccination: Yes Review of Systems - Review of Systems Constitutional: No symptoms reported EENT: No symptoms reported Cardiovascular: No symptoms reported Respiratory: No symptoms reported Gastrointestinal: No symptoms reported Genitourinary: No symptoms reported Female Genitourinary: Vaginal bleeding Musculoskeletal: No symptoms reported Skin: No symptoms reported Hematologic/Lymphatic: No symptoms reported Neurological/Psychological: No symptoms reported -: Yes All other systems reviewed and negative Physical Exam - Vital signs Vitals: Temp Pulse Resp BP Pulse Ox 97.6 F 93 16 113/72 99 07/29/18 02:42 07/29/18 02:42 07/29/18 02:42 07/29/18 02:42 07/29/18 02:42 Interpretation: Normal - General General appearance: Appears well, Alert - HEENT Head: Normocephalic, Atraumatic Eyes: Normal Pupils: PERRL - Respiratory Respiratory status: No respiratory distress Chest status: Nontender Breath sounds: Normal Chest palpation: Normal - Cardiovascular Rhythm: Regular Heart sounds: Normal auscultation Murmur: No - Abdominal Inspection: Normal Distension: No distension Bowel sounds: Normal Tenderness: Nontender Organomegaly: No organomegaly - Back Back: Normal, Nontender - Extremities General upper extremity: Normal inspection, Nontender, Normal color, Normal ROM , Normal temperature General lower extremity: Normal inspection, Nontender, Normal color, Normal ROM , Normal temperature, Normal weight bearing. No: Jennifer's sign - Neurological Neuro grossly intact: Yes Cognition: Normal Orientation: AAOx4 Keyanna Coma Scale Eye Opening: Spontaneous Keyanna Coma Scale Verbal: Oriented Keyanna Coma Scale Motor: Obeys Commands Keyanna Coma Scale Total: 15 Speech: Normal Motor strength normal: LUE, RUE, LLE, RLE Sensory: Normal - Psychological Associated symptoms: Normal affect, Normal mood - Skin Skin Temperature: Warm Skin Moisture: Dry Skin Color: Normal Course - Re-evaluation Re-evalutation: 07/29/18 04:50 Lab and imaging findings discussed with patient and spouse at bedside which are reassuring for positive IUP measuring approximately 7 weeks, heart rate 158, beta quantitative hCG 79,500 which is appropriately increased from previously, patient was advised to follow-up with OB, reports that she has a follow-up scheduled for Monday, advised to keep this appointment, return if symptoms worsen, patient acknowledges understanding and agreement with this plan - Vital Signs Vital signs: Temp Pulse Resp BP Pulse Ox 97.6 F 93 16 113/72 99 07/29/18 02:42 07/29/18 02:42 07/29/18 02:42 07/29/18 02:42 07/29/18 02:42 - Laboratory Result Diagrams: 07/29/18 03:00 07/29/18 03:00 Laboratory results interpreted by me: 07/29/18 07/29/18 03:00 03:00 Beta HCG, Quant 49758.00 H Urine Blood SMALL H - Diagnostic Test Radiology reviewed: Image reviewed, Reports reviewed Discharge - Discharge Clinical Impression: Bleeding in early Condition: Stable Disposition: HOME, SELF-CARE Instructions: Bleeding During Early ([facility]) Additional Instructions: Follow up with your primary care provider and [facility] in one to 2 days. Return to the emergency room immediately if symptoms worsen or any additional concerns.
[2018-07-29 03:13] LABS: ABSOLUTE BASOPHILS # (AUTO) 0.1 10^3/uL (0.0-0.2); ABSOLUTE LYMPHOCYTES (AUTO) 3.1 10^3/uL (0.5-4.7); ABSOLUTE MONOCYTES (AUTO) 0.4 10^3/uL (0.1-1.4); ABSOLUTE NEUT (AUTO) 4.4 10^3/uL (1.7-8.2); BASOPHILS % (AUTO) 0.7 % (0-2); EOSINOPHILS % (AUTO) 0.6 % (0-6); HEMATOCRIT 38.3 % (36.0-47.0); HEMOGLOBIN 13.1 g/dL (12.0-15.5); MEAN CORPUSCULAR HEMOGLOBIN 28.5 pg (27.0-33.4); MEAN CORPUSCULAR HGB CONC 34.1 g/dL (32.0-36.0); MEAN CORPUSCULAR VOLUME 84 fl (80-97); MONOCYTES % (AUTO) 5.4 % (3-13); PLATELET COUNT 242 10^3/uL (150-450); RED BLOOD COUNT 4.58 10^6/uL (3.72-5.28); RED CELL DISTRIBUTION WIDTH 13.6 % (11.5-14.0); SEGMENTED NEUTROPHILS % (AUTO) 54.3 % (42-78); TOTAL CELLS COUNTED % (AUTO) 100 %; WHITE BLOOD COUNT 8.1 10^3/uL (4.0-10.5)
[2018-07-29 03:17] LABS: APPEARANCE,URINE CLEAR; BILIRUBIN,URINE NEGATIVE (NEGATIVE); COLOR,URINE STRAW; GLUCOSE, URINE NEGATIVE (NEGATIVE); KETONES,URINE NEGATIVE (NEGATIVE); LEUKOCYTE ESTERASE,URINE NEGATIVE (NEGATIVE); NITRITE,URINE NEGATIVE (NEGATIVE); PROTEIN,URINE NEGATIVE (NEGATIVE); URINE SPECIFIC GRAVITY 1.012; UROBILINOGEN,URINE NEGATIVE mg/dL (<2.0)
[2018-07-29 03:30] LABS: ALANINE AMINOTRANSFERASE 18 U/L (9-52); ALBUMIN 4.7 g/dL (3.5-5.0); ALKALINE PHOSPHATASE 61 U/L (38-126); ANION GAP 12 (5-19); ASPARTATE AMINO TRANSFERASE 15 U/L (14-36); BILIRUBIN,DIRECT 0.2 mg/dL (0.0-0.4); BILIRUBIN,TOTAL 0.4 mg/dL (0.2-1.3); BLOOD UREA NITROGEN 14 mg/dL (7-20); CALCIUM 10.1 mg/dL (8.4-10.2); CARBON DIOXIDE 28 mmol/L (22-30); CHLORIDE 100 mmol/L (98-107); GLUCOSE 95 mg/dL (75-110); POTASSIUM 4.2 mmol/L (3.6-5.0); SODIUM 139.6 mmol/L (137-145)
--- NOTE | 2018-07-29 03:49 | RADIOLOGY REPORT (SQ) ---
EXAM DESCRIPTION: US TRANSVAGINAL COMPLETED DATE/TME: 07/29/2018 02:59 CLINICAL HISTORY: 23 years Female, vaginal bleeding COMPARISON:07/12/2018 TECHNIQUE: Transvaginal. LIMITATIONS: None. FINDINGS: Living intrauterine fetus measures 7w0d with LAITH of 03/17/2019. Cardiac activity is 158-bpm. Belcher-rump length is 0.9-cm. 3.0-cm right ovary, 2.7-cm left ovary, 3.8-cm cervical length, and no free fluid. IMPRESSION: Living 1st trimester intrauterine gestation. No evidence of complication.
[2018-07-29 05:04] VITALS: BP 103/63
== END 2018-07-29 05:03 | disposition home or self-care (01) ==
LOC: ER 02:36
DX: O20.9 Hemorrhage in early pregnancy, unspecified (principal); Z3A.01 Less than 8 weeks gestation of pregnancy
CPT/HCPCS: 36415; 76817; 80053; 81001; 84702; 85025; 87086; 93976; 99284

== ENCOUNTER 2018-08-03 22:28 | Emergency (ER) | payer OTHER ==
[2018-08-03 22:34] VITALS: BP 103/66
--- NOTE | 2018-08-03 23:57 | ER Document Report ---
ED General - General Chief Complaint: Vaginal Bleeding Stated Complaint: VAGINAL BLEEDING Time Seen by Provider: 08/03/18 23:09 Notes: Patient is a 23-year-old at approximately 7 weeks gestation who presents with concerns of vaginal bleeding intermittently over the past 2 weeks. The patient has been seen in the emergency department multiple times as well as as an outpatient due to this concern. She has had 3 transvaginal ultrasounds including one today which have shown a viable intrauterine with an active heart rate. The patient states that she was concerned because she continues to have vaginal bleeding tonight prompting her to come to the emergency department. She denies saturating a pad at any time with blood. She notes a mild, intermittent, cramping lower abdominal discomfort. Nothing seems to improve or worsen her symptoms. She denies any fever or constitutional symptoms. No vomiting. TRAVEL OUTSIDE OF THE [place] IN LAST 30 DAYS: No - Related Data Allergies/Adverse Reactions: No Known Allergies Allergy (Verified 07/29/18 03:17) Past Medical History - General Information source: Patient - Social History Smoking Status: Never Smoker Frequency of alcohol use: None Drug Abuse: None Lives with: Spouse/Significant other Family History: Reviewed & Not Pertinent Patient has suicidal ideation: No Patient has homicidal ideation: No Renal/ Medical History: Denies: Hx Peritoneal Dialysis - Immunizations Immunizations up to date: Yes Hx Diphtheria, Pertussis, Tetanus Vaccination: Yes Review of Systems - Review of Systems Notes: Constitutional: Negative for fever. HENT: Negative for sore throat. Eyes: Negative for visual changes. Cardiovascular: Negative for chest pain. Respiratory: Negative for shortness of breath. Gastrointestinal: Positive for lower abdominal cramping Genitourinary: Positive for intermittent vaginal bleeding Musculoskeletal: Negative for back pain. Skin: Negative for rash. Neurological: Negative for headaches, weakness or numbness. 10 point ROS negative except as marked above and in HPI. Physical Exam - Vital signs Vitals: Temp Pulse Resp BP Pulse Ox 98.1 F 88 14 103/66 99 08/03/18 22:29 08/03/18 22:29 08/03/18 22:29 08/03/18 22:29 08/03/18 22:29 Interpretation: Normal Notes: PHYSICAL EXAMINATION: GENERAL: Well-appearing, well-nourished and in no acute distress. HEAD: Atraumatic, normocephalic. EYES: Pupils equal round and reactive to light, extraocular movements intact, sclera anicteric, conjunctiva are normal. ENT: nares patent, oropharynx clear without exudates. Moist mucous membranes. NECK: Normal range of motion, supple without lymphadenopathy LUNGS: Breath sounds clear to auscultation bilaterally and equal. No wheezes rales or rhonchi. HEART: Regular rate and rhythm without murmurs ABDOMEN: Soft, nontender, normoactive bowel sounds. No guarding, no rebound. No masses appreciated. EXTREMITIES: Normal range of motion, no pitting or edema. No cyanosis. NEUROLOGICAL: No focal neurological deficits. Moves all extremities spontaneously and on command. PSYCH: Normal mood, normal affect. SKIN: Warm, Dry, normal turgor, no rashes or lesions noted. Course - Re-evaluation Re-evalutation: 08/03/18 23:49 Patient presents with a mild amount of vaginal bleeding in the setting of a first trimester . Patient has a ready had 3 ultrasounds since the fourth of this month all of which have shown an intrauterine with an active heart rate including an outpatient ultrasound that was done today. The patient's main concern is that she is continued to have intermittent spotting. No active bleeding at time of presentation. She is Rh positive. Patient's abdominal exam is otherwise benign without any focal tenderness. I do not suspect an acute appendicitis, pyelonephritis, cystitis, or bowel obstruction. I have provided reassurance to the patient and her emphasizing that at this point the chance of miscarriage is less than 5% given active heart rate. I have also advised that there is nothing we can truly do if she does proceed to miscarriage. We have reviewed specific return precautions in terms of the quantity of bleeding that would warrant a return visit to the emergency department and I have also emphasized that she is welcome to the emergency room at any time for any concern that she may have at this time will discharge with return precautions and follow-up recommendations. Verbal discharge instructions given a the bedside and opportunity for questions given. Medication warnings reviewed. Patient is in agreement with this plan and has verbalized understanding of return precautions and the need for primary care follow-up in the next 24-72 hours. - Vital Signs Vital signs: Temp Pulse Resp BP Pulse Ox 98.1 F 88 14 103/66 99 08/03/18 22:29 08/03/18 22:29 08/03/18 22:29 08/03/18 22:29 08/03/18 22:29 Discharge - Discharge Clinical Impression: Bleeding in early , First trimester Condition: Good Disposition: HOME, SELF-CARE Additional Instructions: You have had several ultrasounds showing a living intrauterine . Your chance of miscarriage even with bleeding is less than 5%. Please follow closely with your primary care [facility]. Please return if you develop severe abdominal pain, bleeding that goes through more than 2 pads for more than 2 hours, pass out, or have any other symptoms that are concerning to you. Please follow-up closely with your OBGYN regarding todays visit.
== END 2018-08-04 00:09 | disposition home or self-care (01) ==
LOC: ER 22:28
DX: N93.8 Other specified abnormal uterine and vaginal bleeding (principal); Z3A.01 Less than 8 weeks gestation of pregnancy
CPT/HCPCS: 99283

== ENCOUNTER 2018-08-24 02:03 | Emergency (ER) | payer OTHER ==
[2018-08-24] MEDS ORDERED: FAMOTIDINE 20 MG TABLET PO ONE (02:43)
--- NOTE | 2018-08-24 02:46 | ER Document Report ---
ED General - General Chief Complaint: Abdominal Pain Stated Complaint: ABDOMINAL PAIN Time Seen by Provider: 08/24/18 02:32 Notes: Patient is a pleasant 22-year-old female presents with complaint of abdominal pain during . She is approximately 11 weeks . She has 1 live child has had one previous miscarriage. She is being seen here multiple times during this for intermittent vaginal bleeding as well as intermittent abdominal pain. She has had several ultrasounds which have not shown any acute concerning abnormality. Patient says she was doing well for last 2 weeks but then start having some abdominal pain today. She says she has some epigastric abdominal pain is worse after eating spicy foods. She said she was eating spicy Cheetos and then her pain started. No vomiting. She has not taken anything for the pain in the epigastric region. Pain is worse with eating. Patient also has some intermittent crampy pain in the lower abdomen that radiates to her back. No abnormal vaginal discharge or bleeding. No fevers. No dysuria. Patient has no other complaints at this time. TRAVEL OUTSIDE OF THE [place] IN LAST 30 DAYS: No - Related Data Allergies/Adverse Reactions: No Known Allergies Allergy (Verified 07/29/18 03:17) Past Medical History - Social History Smoking Status: Never Smoker Frequency of alcohol use: None Drug Abuse: None Family History: Reviewed & Not Pertinent Renal/ Medical History: Denies: Hx Peritoneal Dialysis - Immunizations Immunizations up to date: Yes Hx Diphtheria, Pertussis, Tetanus Vaccination: Yes Review of Systems - Review of Systems Notes: My Normal Review Basic REVIEW OF SYSTEMS: CONSTITUTIONAL : Denies fever, chills, or sweats. Denies recent illness. EENT: Denies eye, ear, throat, or mouth pain or symptoms. Denies nasal or sinus congestion. RESPIRATORY: Denies cough, cold, or chest congestion. Denies shortness of breath, difficulty breathing, or wheezing. GASTROINTESTINAL: Some epigastric and lower abdominal pain. Denies nausea, vomiting, or diarrhea. GENITOURINARY: Denies difficulty urinating, painful urination, burning, frequency, or blood in urine. FEMALE GENITOURINARY: Denies vaginal bleeding, abnormal or irregular periods. LMP: Currently MUSCULOSKELETAL: Denies neck or back pain or joint pain or swelling. SKIN: Denies rash or skin lesions. NEUROLOGICAL: Denies altered mental status or loss of consciousness. ALL OTHER SYSTEMS REVIEWED AND NEGATIVE. Physical Exam - Vital signs Vitals: Temp Pulse Resp BP Pulse Ox 98.7 F 84 18 107/63 97 08/24/18 02:07 08/24/18 02:07 08/24/18 02:07 08/24/18 02:07 08/24/18 02:07 - Notes Notes: General Appearance: Well nourished, alert, cooperative, no acute distress, no ob vious discomfort. Vitals: reviewed, See vital signs table. Eyes: PERRL, EOMI, Conjuctiva clear Lungs: No wheezing, No rales, No rhonci, No accessory muscle use, good air exchange bilaterally. Heart: Normal rate, Regular rythm, No murmur, no rub Abdomen: Normal BS, soft, No rigidity, no reproducible abdominal tenderness to palpation of the upper abdomen. Patient has very mild suprapubic abdominal tenderness to palpation. Remainder of abdomen is nontender., No guarding, no rebound, no abdominal masses, no organomegaly Extremities:good pulses in all extremities, no swelling or tenderness in the extremities, no edema. Skin: warm, dry, appropriate color, no rash Neuro: speech clear, oriented x 3, normal affect, responds appropriately to questions. Course - Re-evaluation Re-evalutation: 08/24/18 03:35 Patient on exam looks well. I did bedside ultrasound which showed an IUP with a heart rate in the 150s. Her epigastric pain seems to be more gastritis related and that is worse with eating and became worse after eating spicy foods. We will place her on Pepcid. She has had some mild lower abdominal cramping. She has very mild pain to palpation of her lower abdomen. Urinalysis negative. She has not had any abnormal vaginal discharge or vaginal bleeding. Feel that she is safe to be discharged home. I encouraged her to avoid sexual activity and to avoid heavy lifting until her pain resolves. Encouraged follow-up with her OB doctor. I encouraged her return to ER if she has severe worsening pain, vomiting, vaginal bleeding, abnormal discharge, fevers, or she feels unwell. Patient agrees with plan and will be discharged home. Dictation of this chart was performed using voice recognition software; therefo re, there may be some unintended grammatical errors. - Vital Signs Vital signs: Temp Pulse Resp BP Pulse Ox 98.7 F 84 18 107/63 97 08/24/18 02:07 08/24/18 02:07 08/24/18 02:07 08/24/18 02:07 08/24/18 02:07 - Laboratory Laboratory results interpreted by me: 08/24/18 02:54 Urine Blood SMALL H Procedures - Ultrasound/Bedside Ultrasound/Bedside Ultrasound: Other Notes: 08/24/18 02:44 Bedside transabdominal will be first trimester ultrasound was performed and interpreted by me. Bedside ultrasound shows good movement with intrauterine . heart rate obtained using M-mode. heart rate is 157 bpm. M-mode image printed off to be scanned into the chart. Discharge - Discharge Clinical Impression: Abdominal pain during Qualifiers: Trimester: first trimester Qualified Code(s): O26.891 - Other specified related conditions, first trimester Condition: Good Disposition: HOME, SELF-CARE Additional Instructions: I suspect the pain with eating in your upper abdomen is related to gastritis. Please take Pepcid 20mg every day to help reduce acid production in your stomach. Please avoid fatty foods and fried foods. Please avoid sexaul activity and heavy lifting while you have intermittent pain in the lower portion of the abdomen. Please return to the ER if you have heavy vaginal bleeding, abnormal vaginal discharge, fevers, worsening pain, or have any further concerns.
[2018-08-24 03:11] LABS: APPEARANCE,URINE SLIGHTLY-CLOUDY; BILIRUBIN,URINE NEGATIVE (NEGATIVE); COLOR,URINE YELLOW; GLUCOSE, URINE NEGATIVE (NEGATIVE); KETONES,URINE NEGATIVE (NEGATIVE); LEUKOCYTE ESTERASE,URINE NEGATIVE (NEGATIVE); NITRITE,URINE NEGATIVE (NEGATIVE); PROTEIN,URINE NEGATIVE (NEGATIVE); URINE SPECIFIC GRAVITY 1.021; UROBILINOGEN,URINE NEGATIVE mg/dL (<2.0)
[2018-08-24 03:43] VITALS: BP 103/56
== END 2018-08-24 03:44 | disposition home or self-care (01) ==
LOC: ER 02:03
DX: O26.891 Other specified pregnancy related conditions, first trimester (principal); R10.13 Epigastric pain; R10.30 Lower abdominal pain, unspecified; Z3A.00 Weeks of gestation of pregnancy not specified
CPT/HCPCS: 81001; 99284

== ENCOUNTER 2019-09-15 03:11 | Emergency (ER) | payer OTHER ==
--- NOTE | 2019-09-15 08:34 | ER Document Report ---
ED GI/ - General TRAVEL OUTSIDE OF THE [place] IN LAST 30 DAYS: No <JULIA CABELLO - Last Filed: 09/15/19 11:58> <SAADIA QUEZADA - Last Filed: 09/15/19 13:11> - General Chief Complaint: Vaginal Bleeding Stated Complaint: SPOTTING Time Seen by Provider: 09/15/19 07:30 Primary Care Provider: JUSTINA WALLS DO [Primary Care Provider] - Follow up as needed Notes: 24-year-old woman presents to the emergency department with a complaint of spotting. States that she started having spotting bleeding on Monday. Started out as small amount of reddish blood now brown in color. She also complains of some lower abdominal pain. She denies fever or other vaginal discharge. (JULIA CABELLO) - Related Data Allergies/Adverse Reactions: No Known Allergies Allergy (Verified 09/15/19 07:15) Past Medical History - Social History Smoking Status: Never Smoker Chew tobacco use (# tins/day): No Frequency of alcohol use: None Drug Abuse: None Family History: Reviewed & Not Pertinent Patient has suicidal ideation: No Patient has homicidal ideation: No Renal/ Medical History: Denies: Hx Peritoneal Dialysis - Immunizations Immunizations up to date: Yes Hx Diphtheria, Pertussis, Tetanus Vaccination: Yes <JULIA CABELLO - Last Filed: 09/15/19 11:58> Review of Systems <JULIA CABELLO - Last Filed: 09/15/19 11:58> - Review of Systems Notes: Constitutional: Negative for fever. HENT: Negative for sore throat. Eyes: Negative for visual changes. Cardiovascular: Negative for chest pain. Respiratory: Negative for shortness of breath. Gastrointestinal: Negative for abdominal pain, vomiting or diarrhea. Genitourinary: + Spotting. Negative for dysuria. Musculoskeletal: Negative for back pain. Skin: Negative for rash. Neurological: Negative for headaches, weakness or numbness. 10 point ROS negative except as marked above and in HPI. (JULIA CABELLO) Physical Exam <JULIA CABELLO - Last Filed: 09/15/19 11:58> - Genitourinary External exam: Normal Speculum exam: Cervix closed, Other - Small amount of brown discharge. Bimanuel exam: Normal. No: Cervical motion tender, Adnexal tenderness <SAADIA QUEZADA - Last Filed: 09/15/19 13:11> - Vital signs Vitals: Temp Pulse Resp BP Pulse Ox 98.2 F 84 20 130/68 H 84 L 09/15/19 03:27 09/15/19 03:27 09/15/19 03:27 09/15/19 03:27 09/15/19 03:27 - Notes Notes: PHYSICAL EXAMINATION: Physical Exam: General: Well-nourished well-developed 24-year-old female in no acute distress HEENT: NC/AT, pupils equal round and reactive to light, MM moist,nares clear, oropharynx clear Neck: supple, no adenopathy, no masses. Lungs: clear, no wheezing, no rales no rhonchi CVS: Regular rate and rhythm no murmur gallop or rub Abdomen: Soft, active, nontender, no masses, no hepatosplenomegaly Ext: No edema clubbing or cyanosis. Neuro: Alert and responsive, moving all 4 extremities on command, cranial nerves intact. Skin: Intact no open lesions, no rash PSYCH: Normal mood, normal affect. (JULIA CABELLO) Course - Laboratory Result Diagrams: 09/15/19 07:55 <JULIA CABELLO - Last Filed: 09/15/19 11:58> - Laboratory Result Diagrams: 09/15/19 07:55 <SAADIA QUEZADA - Last Filed: 09/15/19 13:11> - Re-evaluation Re-evalutation: 09/15/19 11:54 Patient states that she does not want to have the pelvic exam done as she has had a long wait. I have reviewed the lab data and explained to her that she is not significantly anemic or having a urinary tract infection and the test is negative. Patient seemed to be satisfied with those results and states that she can follow-up with her primary care doctor if there is further difficulties or concerns. She is being discharged from the emergency department at this time. (JULIA CABELLO) - Vital Signs Vital signs: Temp Pulse Resp BP Pulse Ox 98.1 F 78 20 122/70 98 09/15/19 11:00 09/15/19 11:00 09/15/19 11:00 09/15/19 11:00 09/15/19 11:00 - Laboratory Laboratory results interpreted by me: 09/15/19 08:20 Urine Blood MODERATE H I have reviewed laboratory data and used this information for the treatment decisions regarding the patient. (JULIA CABELLO) Discharge <JULIA CABELLO - Last Filed: 09/15/19 11:58> <DARIAOSMANSAADIA JAIN - Last Filed: 09/15/19 13:11> - Discharge Clinical Impression: Abnormal vaginal bleeding Condition: Good Disposition: HOME, SELF-CARE Instructions: Vaginal Bleeding ([facility]) Additional Instructions: You are diagnosed with irregular vaginal bleeding in the emergency department today, your test was negative and your blood count is stable you are not anemic. The irregular bleeding may be the result of an and ovulatory cycle (if you did not produce an egg during your cycle, the hormonal system causes irregular bleeding. If the bleeding becomes heavy or if there are other concerns you may return to the emergency department. If the bleeding is due to an irregular hormonal system, it may correct itself during your next. Please follow-up with your doctor if you continue to have spotting or other concerns. Referrals: JUSTINA WALLS, DO [Primary Care Provider] - Follow up as needed
[2019-09-15 08:46] LABS: ABSOLUTE LYMPHOCYTES (AUTO) 2.7 10^3/uL (0.5-4.7); ABSOLUTE MONOCYTES (AUTO) 0.3 10^3/uL (0.1-1.4); ABSOLUTE NEUT (AUTO) 3.2 10^3/uL (1.7-8.2); BASOPHILS % (AUTO) 0.8 % (0-2); EOSINOPHILS % (AUTO) 0.7 % (0-6); HEMATOCRIT 39.8 % (36.0-47.0); HEMOGLOBIN 13.3 g/dL (12.0-15.5); LYMPHOCYTES % (AUTO) 42.1 % (13-45); MEAN CORPUSCULAR HEMOGLOBIN 28.5 pg (27.0-33.4); MEAN CORPUSCULAR HGB CONC 33.4 g/dL (32.0-36.0); MEAN CORPUSCULAR VOLUME 85 fl (80-97); MONOCYTES % (AUTO) 5.3 % (3-13); PLATELET COUNT 253 10^3/uL (150-450); RED BLOOD COUNT 4.67 10^6/uL (3.72-5.28); RED CELL DISTRIBUTION WIDTH 13.8 % (11.5-14.0); SEGMENTED NEUTROPHILS % (AUTO) 51.1 % (42-78); TOTAL CELLS COUNTED % (AUTO) 100 %; WHITE BLOOD COUNT 6.3 10^3/uL (4.0-10.5)
[2019-09-15 09:13] LABS: APPEARANCE,URINE CLEAR; BILIRUBIN,URINE NEGATIVE (NEGATIVE); COLOR,URINE YELLOW; GLUCOSE, URINE NEGATIVE (NEGATIVE); KETONES,URINE NEGATIVE (NEGATIVE); LEUKOCYTE ESTERASE,URINE NEGATIVE (NEGATIVE); NITRITE,URINE NEGATIVE (NEGATIVE); PROTEIN,URINE NEGATIVE (NEGATIVE); URINE SPECIFIC GRAVITY 1.021; UROBILINOGEN,URINE NEGATIVE mg/dL (<2.0)
[2019-09-15 13:47] VITALS: BP 108/53
[2019-09-15 13:49] LABS: BACTERIA (WET MOUNT) 3+ BACTERIA SEEN; T.VAGINALIS (WET MOUNT) NO TRICHOMONAS SEEN; WBCS (WET MOUNT) 3+ WBCS SEEN; YEAST (WET MOUNT) NO YEAST SEEN
[2019-09-15 15:49] LABS: CHLAM PCR NOT DETECTED (NOT DETECT)
== END 2019-09-15 13:47 | disposition home or self-care (01) ==
LOC: ER 03:11
DX: N93.9 Abnormal uterine and vaginal bleeding, unspecified (principal); R10.30 Lower abdominal pain, unspecified
CPT/HCPCS: 36415; 81001; 84703; 85025; 87210; 87491; 87591; 99284